=== PATIENT | female | born 1975 | race Two or more races ===

== ENCOUNTER → 2020-09-29 | Outpatient (CLI) | payer OTHER | END | disposition home or self-care (01) | LOC: OFIC 805 08:30 | PROVIDERS: ATTEND Otolaryngology | DX: K21.9 Gastro-esophageal reflux disease without esophagitis (principal); R07.0 Pain in throat; R09.89 Other specified symptoms and signs involving the circulatory and respiratory systems; R49.8 Other voice and resonance disorders ==

== ENCOUNTER 2021-01-13 15:34 | Outpatient (CLI) | payer OTHER | END 2021-01-13 16:13 | disposition home or self-care (01) | LOC: OFIC 805 15:34 | PROVIDERS: ATTEND Otolaryngology Otology & Neurotology | DX: K21.9 Gastro-esophageal reflux disease without esophagitis (principal); R07.0 Pain in throat; F45.8 Other somatoform disorders; R49.8 Other voice and resonance disorders ==